=== PATIENT | female | born 1955 | race Caucasian/White ===

== ENCOUNTER 2016-07-02 04:31 | Emergency (ER) | payer BC ==
--- NOTE | 2016-07-02 05:09 | Emergency Department Record ---
History of Present Illness - General Chief Complaint: Ankle/Foot Injury Stated Complaint: LT FOOT INJURY Time Seen by Provider: 07/02/16 05:08 Source: Patient Mode of Arrival: Ambulatory - History of Present Illness Initial Comments: The patient is on her feet all day at work moving palates. Last Saturday she felt a sharp pain go through her foot. Now she is limping due to foot pain when she bears weight. She denies any specific known injury or prior injuries to that foot. Onset/Timin -: Days(s) Injury: Foot: Left Place: Work Severity scale (1-10): 4 Improves With: Rest Worsens With: Movement, Weight bearing Associated Symptoms: Able to partially bear weight Treatments Prior to Arrival: NSAIDS - Related Data Home Medications Medication Instructions Recorded Confirmed Last Taken Atorvastatin Calcium [Lipitor] 10 mg PO QHS 07/02/16 07/02/16 07/01/16 Estradiol [Estrace] 1 mg PO DAILY 07/02/16 07/02/16 07/01/16 Losartan Potassium [Cozaar] 100 mg PO DAILY 07/02/16 07/02/16 07/01/16 Metformin HCl [Metformin HCl ER] 500 mg PO BID 07/02/16 07/02/16 07/01/16 Multivitamin [Daily Multiple 1 each PO DAILY 07/02/16 07/02/16 07/01/16 Vitamin] Allergies Allergy/AdvReac Type Severity Reaction Status Date / Time No Known Drug Allergies Allergy Verified 07/02/16 04:56 Travel Screening - Travel/Exposure Within Last 30 Days Have you traveled within the last 30 days?: No - Travel Symptoms Symptom Screening: None Review of Systems Reviewed: No additional complaints except as noted below Constitutional: Reports: As per HPI. Denies: Chills, Fever, Malaise, Night sweats, Weakness, Weight change Eyes: Reports: As per HPI. Denies: Eye discharge, Eye pain, Photophobia, Vision change ENT: Reports: As per HPI. Denies: Congestion, Dental pain, Ear pain, Epistaxis , Hearing loss, Throat pain Respiratory: Reports: As per HPI. Denies: Cough, Dyspnea, Hemoptysis, Stridor, Wheezes Cardiovascular: Reports: As per HPI. Denies: Arrhythmia, Chest pain, Dyspnea on exertion, Edema, Murmurs, Orthopnea, Palpitations, Paroxysmal nocturnal dyspnea, Rheumatic Fever, Syncope Endocrine: Reports: As per HPI. Denies: Fatigue, Heat or cold intolerance, Polydipsia, Polyuria Gastrointestinal: Reports: As per HPI. Denies: Abdominal pain, Constipation, Diarrhea, Hematemesis, Hematochezia, Melena, Nausea, Vomiting Genitourinary: Reports: As per HPI. Denies: Abnormal menses, Discharge, Dyspareunia, Dysuria, Frequency, Hematuria, Incontinence, Retention, Urgency Musculoskeletal: Reports: As per HPI. Denies: Arthralgia, Back pain, Gout, Joint swelling, Myalgia, Neck pain Skin: Reports: As per HPI. Denies: Bruising, Change in color, Change in hair/ nails, Lesions, Pruritus, Rash Neurological: Reports: As per HPI. Denies: Abnormal gait, Confusion, Headache, Numbness, Paresthesias, Seizure, Tingling, Tremors, Vertigo, Weakness Psychiatric: Reports: As per HPI. Denies: Anxiety, Auditory hallucinations, Depression, Homicidal thoughts, Suicidal thoughts, Visual hallucinations Hematological/Lymphatic: Reports: As per HPI. Denies: Anemia, Blood Clots, Easy bleeding, Easy bruising, Swollen glands Past Medical History - SOCIAL HISTORY Smoking Status: Never smoker - RESPIRATORY Hx Respiratory Disorders: No - CARDIOVASCULAR Hx Cardio Disorders: Yes Hx Hypertension: Yes Comment:: high cholesterol - NEURO Hx Neuro Disorders: No - GI Hx GI Disorders: No - Hx Genitourinary Disorders: No - ENDOCRINE Hx Endocrine Disorders: Yes Hx Diabetes: Yes - MUSCULOSKELETAL Hx Musculoskeletal Disorders: Yes Hx Arthritis: Yes - PSYCH Hx Psych Problems: Yes Hx Depression: Yes - HEMATOLOGY/ONCOLOGY Hx Hematology/Oncology Disorders: No Family Medical History Any Significant Family History?: Yes Hx Cancer: Brother/Sister *Cancer Comment: aunts x2 Hx Diabetes: Mother Hx Heart Disease: Father Hx HTN: Mother Hx Stroke: Mother Physical Exam - General General Appearance: Alert, Oriented x3, Cooperative, No acute distress - Head Head exam: Normal inspection - Eye Eye exam: Normal appearance, PERRL Pupils: Normal accommodation - ENT ENT exam: Normal exam, Mucous membranes moist, Normal external ear exam, Normal orophraynx Ear exam: Normal external inspection. negative: External canal tenderness Nasal Exam: Normal inspection. negative: Discharge, Sinus tenderness Mouth exam: Normal external inspection, Tongue normal Teeth exam: Normal inspection. negative: Dental caries Throat exam: Normal inspection. negative: Tonsillar erythema, Tonsillar exudate - Neck Neck exam: Normal inspection, Full ROM. negative: Tenderness - Respiratory Respiratory exam: negative: Respiratory distress - Cardiovascular Cardiovascular Exam: Regular rate, Normal rhythm - GI/Abdominal GI/Abdominal exam: Soft. negative: Tenderness - Rectal Rectal exam: Deferred - exam: Deferred - Extremities Extremities exam: Normal inspection, Full ROM, Normal capillary refill, Other ( there is no tendernes on palpation of foot, no edema, no erythema or visible deformity. Upon weight bearing there is pain mid-foot at arch. CMS intact distally.). negative: Tenderness - Back Back exam: Reports: Normal inspection, Full ROM. Denies: Muscle spasm, Rash noted, Tenderness - Neurological Neurological exam: Alert, Normal gait, Oriented X3, Reflexes normal - Psychiatric Psychiatric exam: Normal affect, Normal mood - Skin Skin exam: Dry, Intact, Normal color, Warm Course Vital Signs 07/02/16 04:42 Temperature 98.3 F Pulse Rate [ 71 Pulse Ox Probe] Respiratory 16 Rate Blood Pressure 190/86 [Left Arm] Pulse Ox 96 - Reevaluation(s) Reevaluation #1: Patient was offerred something for pain but declined as she had 3 aleve prior to coming here. 07/02/16 05:30 Medical Decision Making - Management Options MDM Management: No Additional Work-up Planned - Data Complexity MDM Data: X-Ray Ordered and/or Reviewed (Left foot xray: Negative per ED physician.) Disposition Disposition: Discharge Clinical Impression: Foot pain, left Disposition: Home, Self-Care Condition: (1) Good Instructions: Arthralgia (ED) Additional Instructions: Torsten wrap to foot. No weight bearing Crutches. Ibuprofen as directed for pain. Follow up with PCP next week.
--- NOTE | 2016-07-05 14:18 | RADIOLOGY REPORT ---
EXAM: LEFT FOOT HISTORY: INJURY WITH MEDIAL PAIN. TECHNIQUE: Three views of the left foot were obtained. Comparison: None. Encounter: Initial. FINDINGS: There is a mild bunion deformity in the first metatarsal phalangeal joint. There is a plantar and a small dorsal calcaneal spur. Mild arthritic changes in the tibiotalar joint and talonavicular joint. The bones and joints otherwise are unremarkable with no fracture or acute osseous abnormality identified. There is no destructive or erosive change identified. IMPRESSION: 1. NO FRACTURE OR ACUTE OSSEOUS ABNORMALITY. 2. MILD BUNION DEFORMITY IN THE LEFT FIRST METATARSAL PHALANGEAL JOINT. 3. CALCANEAL SPURS. 4. MILD ARTHRITIC CHANGE IN THE TIBIOTALAR JOINT AND TALONAVICULAR JOINT. JOB NUMBER: [id number] MTDD
== END 2016-07-02 06:18 | disposition home or self-care (01) ==
LOC: ER 04:31
DX: G89.11 Acute pain due to trauma (principal); M79.672 Pain in left foot; X50.0XXA Overexertion from strenuous movement or load, initial encounter; Y93.89 Activity, other specified; Y92.59 Other trade areas as the place of occurrence of the external cause; Y99.0 Civilian activity done for income or pay
CPT/HCPCS: 99283

== ENCOUNTER 2017-03-29 09:42 | Day surgery (SDC) | payer BC ==
[2017-03-29] MEDS ORDERED: LIDOCAINE 2% MDV (20MG/ML) 20ML VIAL IV ONE (15:50)
[2017-03-29] MEDS ORDERED: PROPOFOL 10 MG/ML VIAL IV ONE (15:50)
[2017-03-29] MEDS ORDERED: MIDAZOLAM HCL 2MG/2ML VIAL IV ONE (15:50)
--- NOTE | 2017-04-01 12:30 | Operative Note ---
DATE OF SURGERY: 03/29/2017 SURGEON: Roselia Mcdowell MD OPERATION: COLONOSCOPY. INDICATIONS: This is a 61-year-old female with average risk for colorectal cancer who presented for screening colonoscopy. POSTOPERATIVE DIAGNOSIS: Normal colon. ANESTHESIA: Sedation is per Anesthesia. Pulse oximetry was monitored throughout the procedure to maintain O2 saturation of 90% or greater. Supplemental oxygen was administered via nasal cannula. Cardiac and vital signs were monitored throughout the duration of the procedure, and they were stable. The procedure of colonoscopy and risks and alternatives of the procedure, including the risk of bleeding and perforation, among others, were explained to the patient who voiced understanding and agreed to have the procedure done. Physical examination was performed, and the patient was found stable for sedation. PROCEDURE: The patient was placed in the left lateral position. Sedation was initiated. A digital rectal exam was performed and showed some mild external hemorrhoids with no palpable rectal masses. An Olympus PCF-180AL colonoscope was then inserted into the rectum under direct visualization. It was advanced to the cecum without difficulty. The ileocecal valve and appendiceal orifice were identified and photographed. The colonic mucosa was carefully examined upon introduction of the colonoscope. There were no lesions noted. The colonoscope was then withdrawn while carefully examining the colonic mucosal surfaces. No lesions were noted. In the rectum, retroflexion was performed and grade 1 internal hemorrhoids were noted. The colonoscope was then withdrawn and the procedure was terminated. The patient tolerated the procedure well without any immediate complications. She remained with stable vital signs and was transferred to the recovery room. RECOMMENDATIONS: 1. The patient should be on a high-fiber diet. 2. The patient is to have a repeat colonoscopy for screening in 10 years. Thank you for allowing me to participate in the care of your patient. CC: Fern HAYES
== END 2017-03-29 11:30 | disposition home or self-care (01) ==
LOC: HOP 09:42
PROVIDERS: ATTEND Internal Medicine Gastroenterology
DX: Z12.11 Encounter for screening for malignant neoplasm of colon (principal); K64.0 First degree hemorrhoids; K64.4 Residual hemorrhoidal skin tags; I10 Essential (primary) hypertension; E78.00 Pure hypercholesterolemia, unspecified; E11.9 Type 2 diabetes mellitus without complications
CPT/HCPCS: 00810; G0121